=== PATIENT | male | born 1960 | race Caucasian/White ===

== ENCOUNTER → 2021-05-11 | Outpatient (CLI) | payer OTHER ==
--- NOTE | 2021-05-11 08:56 | KCIC ---
CT LOW DOSE LUNG SCREEN HISTORY: Reason: Cough, smoker of 45 yrs., lung cancer screening. / Spl. Instructions: / History: Hx . heart disease, occasional SOA. COMPARISON: None. TECHNIQUE: Low-dose noncontrast CT scan of the chest. FINDINGS: Aorta and great vessels: No aneurysm of the aortic arch or thoracic aorta is seen. Moderate atheroscl erotic calcification. Thyroid: No significant abnormalities. Mediastinum and disha: Calcified right hilar lymph nodes. No enlarged mediastinal or hilar adenopathy. Esophagus: The visualized esophagus is normal. Heart: The heart is normal in size. There is no pericardial effusion. Heavy coronary artery calcifica tion. Airways: Bronchial wall thickening. No bronchiectasis. Lungs: Centrilobular emphysema. Calcified 7 mm right upper lobe parenchymal nodule. A few scattered t iny nodules measuring less than 4 mm 2 mm nodule left lower lobe, for example axial series 6 image 29 7. The Pleural space: There is no pneumothorax or pleural effusion. Upper abdomen: Punctate calcifications in the spleen consistent with old granulomatous disease. Osseous structures and soft tissues: Within normal limits for age. IMPRESSION: 1. History of old granulomatous disease with calcified and small noncalcified pulmonary nodules. 2. Emphysema and bronchial wall thickening. 3. Heavy coronary artery calcification. LUNG RADS: Category 2: Benign appearance or behavior. Follow up: Continue annual screening with LDCT in 12 months. Exposure: One or more of the following individualized dose reduction techniques were utilized for thi s examination: 1. Automated exposure control 2. Adjustment of the mA and/or kV according to patient size 3. Use of iterative reconstruction technique. Electronically signed by: Bassam Hui MD (05/11/2021 8:54 AM) [place] [id number]
== END ==
LOC: KCIC CT 08:13
PROVIDERS: ATTEND Family Medicine
DX: Z12.2 Encounter for screening for malignant neoplasm of respiratory organs (principal); J43.2 Centrilobular emphysema; R91.8 Other nonspecific abnormal finding of lung field; D73.89 Other diseases of spleen; I70.0 Atherosclerosis of aorta; R59.0 Localized enlarged lymph nodes; I25.10 Atherosclerotic heart disease of native coronary artery without angina pectoris; Z71.6 Tobacco abuse counseling
CPT/HCPCS: 71271